=== PATIENT | female | born 1995 | race Caucasian/White ===

== ENCOUNTER 2018-06-08 17:54 | Emergency (ER) | payer OTHER ==
[2018-06-08 18:11] VITALS: BP 105/69
--- NOTE | 2018-06-08 18:56 | EDPHY ---
H & P Stated Complaint: Bradycardia Time Seen by Provider: 06/08/18 18:48 HPI/ROS: CHIEF COMPLAINT: Asymptomatic bradycardia HISTORY OF PRESENT ILLNESS: The patient has a history of an eating disorder characterized as mild anorexia with excessive exercise. She has lost approximately 20 lb in the past 5 months. She was being seen at [facility] for an intake today regarding her eating disorder and was noted to be bradycardic. She was sent to the ED for further evaluation. The patient denies any chest pain or shortness of breath. The patient does exercise frequently. The patient has a history of chronic bradycardia by her report. The patient denies any additional acute complaints. The patient is accompanied by her parents to feel that she is safe in the outpatient setting following up with [facility] surrounding her eating disorder. REVIEW OF SYSTEMS: A comprehensive 10 point review of systems is otherwise negative aside from elements mentioned in the history of present illness. Source: Patient Exam Limitations: No limitations - Personal History LMP (Females 10-55): Unknown Current Tetanus/Diphtheria Vaccine: Yes - Medical/Surgical History Hx Asthma: No Hx Chronic Respiratory Disease: No Hx Diabetes: No Hx Cardiac Disease: No Hx Renal Disease: No Hx Cirrhosis: No Hx Alcoholism: No Other PMH: Eating disorder, bradycardia - Social History Smoking Status: Never smoked - Physical Exam Exam: General Appearance: Alert, no distress, thin female Eyes: Pupils equal and round no pallor or injection ENT, Mouth: Mucous membranes moist Respiratory: There are no retractions, lungs are clear to auscultation Cardiovascular: Bradycardic Gastrointestinal: Abdomen is soft and nontender, no masses, bowel sounds normal Neurological: 5/5 strength all 4 extremities Skin: Warm and dry, no rashes Musculoskeletal: Neck is supple nontender Extremities: symmetrical, full range of motion Constitutional: Initial Vital Signs Temperature (C) 36.9 C 06/08/18 18:09 Heart Rate 39 L 06/08/18 18:09 Respiratory Rate 18 06/08/18 18:09 Blood Pressure 105/69 06/08/18 18:09 O2 Sat (%) 97 06/08/18 18:09 O2 Delivery Mode Room Air Allergies/Adverse Reactions: No Known Allergies Allergy (Unverified 06/08/18 18:11) Home Medications: Medication Instructions Recorded NK [No Known Home Meds] 06/08/18 Medical Decision Making - Diagnostics EKG Interpretation: EKG: Complete interpretation has been separately recorded in the [facility] archive. Summary impression: Sinus rhythm, rate 38 ED Course/Re-evaluation: The patient presents to the ED for evaluation of asymptomatic bradycardia which is felt to be physiologic and not pathologically evaluation here today. The patient is well-appearing. She is currently being evaluated for mild anorexia. She is safe and is currently eating smaller meals. The patient has a history of bradycardia. She is an athlete. She runs and exercises frequently without chest pain, shortness of breath or presyncope. Patient will be given referral to Cardiology for comprehensive evaluation however no acute findings are noted in the emergency department today. Differential Diagnosis: Differential diagnosis considered includes dehydration, metabolic abnormality, heart block, physiologic bradycardia - Data Points Laboratory Results: Laboratory Results 06/08/18 19:02 06/08/18 19:02 06/08/18 06/08/18 06/08/18 19: 19: 19:02 WBC 3.18 10^3/uL L 10^3/uL (3.80-9.50) RBC 3.66 10^6/uL L 10^6/uL (4.18-5.33) Hgb 11.7 g/dL L g/dL (12.6-16.3) Hct 35.0 % L % (38.0-47.0) MCV 95.6 fL fL (81.5-99.8) MCH 32.0 pg pg (27.9-34.1) MCHC 33.4 g/dL g/dL (32.4-36.7) RDW 15.3 % H % (11.5-15.2) Plt Count 226 10^3/uL 10^3/uL (150-400) MPV 8.8 fL fL (8.7-11.7) Neut % (Auto) 64.5 % % (39.3-74.2) Lymph % (Auto) 23.0 % % (15.0-45.0) [place] % (Auto) 11.6 % % (4.5-13.0) Eos % (Auto) 0.3 % L % (0.6-7.6) Baso % (Auto) 0.3 % % (0.3-1.7) Nucleat RBC Rel Count 0.0 % % (0.0-0.2) Absolute Neuts (auto) 2.05 10^3/uL 10^3/uL (1.70-6.50) Absolute Lymphs (auto) 0.73 10^3/uL L 10^3/uL (1.00-3.00) Absolute Monos (auto) 0.37 10^3/uL 10^3/uL (0.30-0.80) Absolute Eos (auto) 0.01 10^3/uL L 10^3/uL (0.03-0.40) Absolute Basos (auto) 0.01 10^3/uL L 10^3/uL (0.02-0.10) Absolute Nucleated RBC 0.00 10^3/uL 10^3/uL (0-0.01) Immature Gran % 0.3 % % (0.0-1.1) Immature Gran # 0.01 10^3/uL 10^3/uL (0.00-0.10) Sodium 136 mEq/L mEq/L (135-145) Potassium 3.5 mEq/L mEq/L (3.5-5.2) Chloride 98 mEq/L mEq/L (97-110) Carbon Dioxide 26 mEq/l mEq/l (22-31) Anion Gap 12 mEq/L mEq/L (6-14) BUN 20 mg/dL mg/dL (7-23) Creatinine 0.7 mg/dL mg/dL (0.6-1.0) Estimated GFR > 60 Glucose 82 mg/dL mg/dL (70-100) Calcium 9.3 mg/dL mg/dL (8.5-10.4) Beta HCG, Qual NEGATIVE Departure - Departure Disposition: Home, Routine, Self-Care Clinical Impression: Bradycardia Condition: Good Instructions: Bradycardia (ED) Additional Instructions: 1. I do recommend following up with Cardiology for completeness sake and a thorough evaluation. 2. Return to the ED if you pass out, developed chest pain or shortness of breath. 3. Please continue to work with the [facility] regarding your eating disorder. 4. Return to the ED at any time should you feel weak or have any concerns about your health. Referrals: Swati Kim MD [Medical Doctor] - As per Instructions
[2018-06-08 19:12] LABS: PLATELET COUNT 226 10^3/uL (150-400)
--- NOTE | 2018-06-08 19:22 | CPEKG ---
Test Reason : OPEN Blood Pressure : / mmHG Vent. Rate : 038 BPM Atrial Rate : 000 BPM P-R Int : 150 ms QRS Dur : 074 ms QT Int : 478 ms P-R-T Axes : 001 085 065 degrees QTc Int : 380 ms Sinus bradycardia Confirmed by Rancho Latham ([id number]) on 06/08/2018 7:22:29 PM Referred By: Confirmed By:Rancho Latham
== END 2018-06-08 20:17 | disposition home or self-care (01) ==
DX: R00.1 Bradycardia, unspecified (principal); F50.9 Eating disorder, unspecified